=== PATIENT | male | born 1950 | race Caucasian/White ===

== ENCOUNTER 2019-07-18 04:40 | Observation (INO) ==
[2019-07-18 06:21] LABS: Basophils % 0.2 %; Eosinophils % 0.2 %; Hematocrit 36.3 % (37.5-50.1); Hemoglobin 12.3 g/dL (12.9-16.9); Immature Granulocytes % 0.5 % (0-4); Lymphocytes # 0.6 K/mcL (0.6-4.6); Lymphocytes % 4.3 %; Mean Corpuscular HGB Conc 33.9 g/dL (31.6-35.5); Mean Corpuscular Hemoglobin 29.7 pg (28.0-33.3); Mean Corpuscular Volume 87.7 fL (83.0-100.0); Mean Platelet Volume 9.2 fL (9.4-12.4); Monocytes # 0.4 K/mcL (0.0-1.3); Monocytes % 3.2 %; Neutrophils # 12.7 K/mcL (1.6-8.9); Platelet Count 231 K/mcL (140-400); Red Blood Count 4.14 M/mcL (4.19-5.50); Red Cell Distribution Width 14.6 % (11.5-14.5); Segmented Neutrophils % 91.6 %; White Blood Count 13.9 K/mcL (4.3-11.1)
[2019-07-18 06:35] LABS: INR 1.2; Prothrombin Time 13.4 Seconds (9.4-12.1)
[2019-07-18 06:38] LABS: Activated Partial Thrombo Time 25.5 Seconds (26.0-36.0)
[2019-07-18] MEDS ORDERED: *HR* LORazepam 2 MG/ML VIAL IVP ONE (06:41)
[2019-07-18 06:44] LABS: Alanine Aminotransferase 4 Units/L (7-52); Albumin 3.7 g/dL (3.5-5.7); Albumin/Globulin Ratio 1.4 (1.1-2.2); Alkaline Phosphatase 104 Units/L (34-104); Aspartate Amino Transferase 12 Units/L (13-39); BUN/Creatinine Ratio 16 (6-26); Bilirubin,Direct 0.1 mg/dL (0.0-0.2); Bilirubin,Indirect 0.4 mg/dL (0.0-1.0); Bilirubin,Total 0.5 mg/dL (0.3-1.0); Blood Urea Nitrogen 18 mg/dL (8-23); Calcium 9.1 mg/dL (8.6-10.3); Carbon Dioxide 24 mEq/L (23-29); Chloride 101 mEq/L (98-107); Globulin 2.7 g/dL (2.4-3.5); Glucose 153 mg/dL (70-105); Osmolality,Calculated 291 (280-300); Potassium 3.7 mEq/L (3.5-5.1); Sodium 138 mEq/L (136-145); Total Protein 6.4 g/dL (6.4-8.9); Troponin I < 0.03 ng/mL (< 0.04); eGFR For African Americans > 60 (> 60); eGFR For Non-African Americans > 60 (> 60)
[2019-07-18] MEDS ORDERED: Isovue-370 500 ML BOTTLE IVP ONE (07:21)
[2019-07-18] MEDS ORDERED: Azithromycin 500 MG in 0.9 % Sodium Chloride 250 ML IVPB ONE (08:58)
[2019-07-18] MEDS ORDERED: cefTRIAXone 1,000 MG in 0.9 % Sodium Chloride Mini Bag 100 ML IVPB ONE (08:58)
[2019-07-18] MEDS ORDERED: 0.9 % Sodium Chloride 1,000 ML IVC ONE (08:59)
[2019-07-18] MEDS ORDERED: Ipratropium/Albuterol Neb 3 ML IH ONE (09:29)
[2019-07-18] MEDS ORDERED: Aspirin 81 MG TAB.CHEW PO ONE (09:30)
[2019-07-18] MEDS ORDERED: Naloxone 0.4 MG/ML INJ IVP PRN (09:52)
[2019-07-18] MEDS ORDERED: *HR* HYDROcodone/Acet 5/325 mg TABLET PO PRN (13:21)
[2019-07-18] MEDS ORDERED: hydrOXYzine pamoate 25 MG CAPSULE PO PRN (13:21)
[2019-07-18] MEDS: *HR* Heparin 5,000 UNIT/ML VIAL SQ SCH ×2 (15:51→20:24)
[2019-07-18] MEDS: Morphine Sulfate ER (12 HR) 15 MG TABLET.ER PO SCH ×2 (15:51→22:57)
[2019-07-18] MEDS: Carbidopa/Levodopa ER 50/200 TABLET PO SCH (20:24)
[2019-07-19 04:32] LABS: Basophils % 0.2 %; Eosinophils # 0.1 K/mcL (0.0-0.6); Hematocrit 31.9 % (37.5-50.1); Immature Granulocytes % 0.4 % (0-4); Lymphocytes # 0.9 K/mcL (0.6-4.6); Lymphocytes % 10.2 %; Mean Corpuscular HGB Conc 33.5 g/dL (31.6-35.5); Mean Corpuscular Hemoglobin 29.7 pg (28.0-33.3); Mean Corpuscular Volume 88.6 fL (83.0-100.0); Mean Platelet Volume 9.7 fL (9.4-12.4); Monocytes # 0.4 K/mcL (0.0-1.3); Monocytes % 4.5 %; Neutrophils # 7.7 K/mcL (1.6-8.9); Platelet Count 196 K/mcL (140-400); Red Cell Distribution Width 14.6 % (11.5-14.5); Segmented Neutrophils % 83.7 %; White Blood Count 9.2 K/mcL (4.3-11.1)
[2019-07-19 04:34] LABS: Hemoglobin 10.7 g/dL (12.9-16.9)
[2019-07-19 04:53] LABS: BUN/Creatinine Ratio 16 (6-26); Blood Urea Nitrogen 14 mg/dL (8-23); Calcium 8.8 mg/dL (8.6-10.3); Carbon Dioxide 29 mEq/L (23-29); Chloride 103 mEq/L (98-107); Glucose 88 mg/dL (70-105); Osmolality,Calculated 286 (280-300); Potassium 3.7 mEq/L (3.5-5.1); Sodium 138 mEq/L (136-145); eGFR For African Americans > 60 (> 60); eGFR For Non-African Americans > 60 (> 60)
[2019-07-19] MEDS: *HR* Heparin 5,000 UNIT/ML VIAL SQ SCH ×3 (05:34→21:59)
[2019-07-19] MEDS: Morphine Sulfate ER (12 HR) 15 MG TABLET.ER PO SCH ×3 (07:18→21:58)
[2019-07-19] MEDS: cefTRIAXone 2,000 MG in Water for inj. (sterile) 20 ML IVP SCH (08:24)
[2019-07-19] MEDS: Carbidopa/Levodopa ER 50/200 TABLET PO SCH ×3 (08:26→21:59)
[2019-07-19] MEDS: Celecoxib 200 MG CAPSULE PO SCH (08:26)
[2019-07-19] MEDS: atenoloL 50 MG TABLET PO SCH (08:26)
[2019-07-19] MEDS: Azithromycin 500 MG in 0.9 % Sodium Chloride 250 ML IVPB SCH (10:29)
[2019-07-19] MEDS: Ipratropium/Albuterol Neb 3 ML IH SCH ×3 (11:00→21:30)
[2019-07-19] MEDS: MethylPREDNISolone 40 MG/ML VIAL IVP SCH (18:30)
[2019-07-19] MEDS ORDERED: Mirtazapine 15 MG TABLET PO SCH (21:00)
[2019-07-19] MEDS: Budesonide/Formoterol 160/4.5 1 PUFF INH IH SCH (21:30)
[2019-07-19] MEDS ORDERED: *HR* LORazepam 2 MG/ML VIAL IVP ONE (22:29)
[2019-07-20] MEDS: Ipratropium/Albuterol Neb 3 ML IH SCH ×2 (03:39→10:38)
[2019-07-20] MEDS: MethylPREDNISolone 40 MG/ML VIAL IVP SCH (05:16)
[2019-07-20] MEDS: *HR* Heparin 5,000 UNIT/ML VIAL SQ SCH (05:16)
[2019-07-20 06:46] VITALS: BP 124/76
[2019-07-20] MEDS: cefTRIAXone 2,000 MG in Water for inj. (sterile) 20 ML IVP SCH (07:33)
[2019-07-20] MEDS: atenoloL 50 MG TABLET PO SCH (07:34)
[2019-07-20] MEDS: Carbidopa/Levodopa ER 50/200 TABLET PO SCH ×2 (07:34→07:35)
[2019-07-20] MEDS: Morphine Sulfate ER (12 HR) 15 MG TABLET.ER PO SCH (07:34)
[2019-07-20] MEDS: Celecoxib 200 MG CAPSULE PO SCH (07:34)
[2019-07-20] MEDS: Azithromycin 500 MG in 0.9 % Sodium Chloride 250 ML IVPB SCH (10:16)
[2019-07-20] MEDS: Budesonide/Formoterol 160/4.5 1 PUFF INH IH SCH (10:38)
== END 2019-07-20 12:44 | disposition home health service (06) ==
LOC: EMEROOARM 04:40 → 2NENU 04:40 → SUATTDRO 10:18 → 2NENU 11:25 → 3ANU 23:18
PROVIDERS: ADMIT Internal Medicine; ATTEND Pharmacist